=== PATIENT | female | born 1980 | race Two or more races ===

== ENCOUNTER 2017-12-17 12:26 | Outpatient (CLI) | END 2017-12-17 16:10 | disposition home or self-care (01) ==

== ENCOUNTER 2018-01-05 17:29 | Outpatient (CLI) | END 2018-01-05 18:45 | disposition home or self-care (01) ==

== ENCOUNTER 2018-01-08 10:18 | Outpatient (CLI) | END 2018-01-08 12:46 | disposition home or self-care (01) ==

== ENCOUNTER 2018-01-11 16:02 | Outpatient (CLI) | END 2018-01-11 17:55 | disposition home or self-care (01) ==

== ENCOUNTER 2018-01-14 14:59 | Outpatient (CLI) | END 2018-01-14 17:23 | disposition home or self-care (01) ==

== ENCOUNTER 2018-01-18 14:43 | Outpatient (CLI) | END 2018-01-18 17:50 | disposition home or self-care (01) ==

== ENCOUNTER 2018-01-23 07:58 | Inpatient (IN) | END 2018-01-30 15:45 | disposition home or self-care (01) | DRG 788 ==